=== PATIENT | female | born 1975 | race Caucasian/White ===

== ENCOUNTER 2018-08-09 18:33 | Inpatient (IN) | payer BC, OTHER ==
[2018-08-09] VITALS: BP 106/72
[~2018-08-09] VITALS: Ht 162.6 cm; Wt 65.8 kg
--- NOTE | 2018-08-09 20:30 | NUR ---
INTAKE ASSESSMENT Pt presented in Intake to " stop drinking Alcohol". Pt has been drinking Tequila,taking Oxycodone for pain also takes CBD to" relax and feel good".Pt began drinking Alcohol (Tequila) since she was 12 years old because "it was there at home", socially and occasionally at first but more regularly as years went by.Pt stated "I don't even like the taste of it but I cannot stop drinking".She began taking Oxycodone since the age of 29 and Xtampza since 6 months ago due to chronic low back pain. Pt is A/O x 4,lives at home with her family.She is allergic to Metalaxone and Morphine. She is able to ambulate with a steady gait,speech is clear and coherent.v/s are stable.
[2018-08-09 20:40] LABS: *URINE HCG, QUAL NEGATIVE (NEGATIVE)
[2018-08-09 21:02] LABS: *AMPHETAMINE, URINE NEGATIVE (NEGATIVE); *BARBITURATE, URINE NEGATIVE (NEGATIVE); *CANNABINOID, URINE POSITIVE (NEGATIVE); *COCCAINE, URINE NEGATIVE (NEGATIVE); *OPIATE, URINE NEGATIVE (NEGATIVE); *PHENCYCLIDINE SCREEN,URINE NEGATIVE (NEGATIVE)
[2018-08-09] MEDS ORDERED: IBUPROFEN 600 MG TABLET PO PRN (21:30)
[2018-08-09] MEDS ORDERED: MAG HYDROX/AL HYDROX/SIMETH 30 ML LIQUID UDC PO PRN (21:30)
[2018-08-09] MEDS ORDERED: LOPERAMIDE HCL 2 MG CAPSULE PO PRN ×2 (21:30)
[2018-08-09] MEDS ORDERED: MIRALAX 17 GM POWD.PACK PO PRN (21:30)
[2018-08-09] MEDS ORDERED: THIAMINE HCL 200 MG/2 ML VIAL IM ONE (21:30)
[2018-08-09] MEDS ORDERED: BUPRENORPHINE HCL 2 MG TAB.SUBL SL PRN (21:30)
[2018-08-09] MEDS ORDERED: SRC OPIOID WITHDRAWAL ADMITTING PROTOCOL XX PRN (21:30)
[2018-08-09] MEDS ORDERED: SRC ALCOHOL WITHDRAWAL ADMITTING PROTOCOL XX PRN (21:30)
[2018-08-09] MEDS ORDERED: LORAZEPAM 2 MG/1 ML VIAL IM PRN (21:30)
[2018-08-09] MEDS ORDERED: diphenhydrAMINE 50 MG CAPSULE PO PRN (21:30)
[2018-08-09] MEDS ORDERED: LORAZEPAM 1 MG TABLET PO PRN (21:30)
[2018-08-09] MEDS ORDERED: MAGNESIUM HYDROXIDE 30 ML LIQUID UDC PO PRN (21:30)
--- NOTE | 2018-08-09 21:30 | NUR ---
ADMISSION NOTE-- HT=5 FEET; 4 INCHES. SC=030 POUNDS B/P=133/87,T=97.8; P=105; R=18; O2 SAT= 99% ON ROOM AIR. CIWA=16; C0WS=6. Admitting 43 y/o female to [facility] for medically supervised withdrawals from Alcohol and Opiates.Pt also admits taking CBD " to relax and feel good".Pt began drinking Alcohol (Tequila) since she was 12 years old because "it was there at home", socially and occasionally at first but more regularly as years went by.Pt stated "I don't even like the taste of it but I cannot stop drinking".She began taking Oxycodone since the age of 29 and Xtampza since 6 months ago due to chronic low back pain. SUBSTANCE USE HX-- ALCOHOL - 750 ML OF TEQUILA DAILY FOR 7 DAYS ,LAST DRINK ON 08-09-18 At 1600 OXYCODONE -40 TO 60 MG DAILY ,FOR " A LONG TIME", LAST TAKEN 20 MG ON 08-09-18 AT 0900 XTAMPZA - 54 MG DAILY FOR 6 MONTHS,LAST TAKEN ON 08-09-18 AT 0400. When she is not drinking alcohol, Pt has withdrawal symptoms including anxiety,restlessness,nausea,vomiting,diarrhea and tremors.Pt stated that she began drinking Alcohol because it was easily available at home and her father,brother and sister were also drinking.She wants to stop drinking now because her daughter has moved into her house and she does not want to be drunk around her grandchildren.She has attempted to detox x 2 in the past but soon relapsed due to cravings and poor self control.This time she is more serious because she wants to spend good quality time with her grandchildren.She plans to go for rehab to [facility] after discharge.Pt stated she is here to stop drinking Alcohol but she may go back to using pain medications due to chronic pain issues.Per Pt,her longest period of sobriety from alcohol was for 13 years from 2001 to 2015 and 1 year of sobriety from Oxycodone. PHYSICAL ASSESSMENT Pt is A/O x 4,lives at home with her family in [place].She is allergic to Metalaxone and Morphine. She has HX of Anxiety,Depression, Insomnia, was diagnosed of hypothyroidism in 2018 but is not taking any medication.Hx of Fibromyalgia,Autoimmune Anemia, she has a blood transfusion every 3 months, last one was 6 months ago ," I don't know why". Breast Augmentation in 2007, x 1 in 2001,gastric bypass in 2010, gall bladder removal in 2010, hysterectomy in 2009,low back surgery in 2015,nasal surgery for deviated septum in 2008.Pt has hx Pneumococcal Pneumonia and Cellulitis.Pt stated that she was in a coma for 3 weeks due to sepsis in 2011. During assessment,Pt noted to have surgical multiple scars all over,but skin is intact,warm and dry to touch; abdomen is soft with b/s present in all 4 quadrants; no c/o n/v/d noted. Respirations are even and non labored,no SOB noted. PCP is Dr. Mas in [place], [place].Pt admits having hx of withdrawal induced cardiac complications,delirium,blackouts and falls.Seizure history is unknown. PSYCHIATRIC HX-- Pt has hx of suicide attempt x 1, " few years ago", when she overdosed on alcohol and pills.She was admitted on a voluntary status at [facility],where she stayed for 8 days.She denies having any suicidal thoughts at this time.Denies any SI/HI/AH/VH. TREATMENT HX- [facility] ( MARCH 2018 FROM March TO March) [facility] - IN 2010 FOR 60 DAYS. [facility]- 3 WEEKS AGO FOR 7 DAYS. Pt oriented to room and unit, all safety measures in place with call light within reach, care plan and safety checks initiated, education material provided.Pt placed on fall and seizure precautions.Nasal swab done for MRSA. notified,will continue to monitor for safe withdrawal. Addendum: 08/10/18 at 0712 by CAREY PALMA RN Pt stated that while she was in detox,she was still getting her Oxycodone for pain.Pt stated that she had prescriptions from her Doctor and they continued with the RX.Pt has a Portacath on her left upper chest area,which she stated has been used for blood draw for lab work. However the labor contractor was able to draw blood from her antecubital area without any problem. Addendum: 08/10/18 at 0722 by CAREY PALMA RN Pt"s UDS is positive for Benzos but she denies taking any Benzos.
[2018-08-09] MEDS ORDERED: NITR50CA PO (21:51)
[2018-08-09] MEDS ORDERED: MAGN400C PO (21:51)
[2018-08-09] MEDS ORDERED: METH150T PO (21:51)
[2018-08-09] MEDS ORDERED: PHEN-894 PO (21:51)
[2018-08-09] MEDS ORDERED: QUET200T PO (22:05)
[2018-08-09] MEDS ORDERED: DIPH25CA83 PO (22:05)
[2018-08-09] MEDS ORDERED: HYDR50CA5 PO (22:05)
[2018-08-09] MEDS ORDERED: LIDO30AD10 TD (22:05)
[2018-08-09] MEDS ORDERED: CYCL5TAB PO (22:05)
--- NOTE | 2018-08-09 22:47 | NUR ---
PRN ATIVAN 2 MG PO GIVEN FOR CIWA 16,WILL MONITOR FOR EFFECTIVENESS.
[2018-08-09 23:03] LABS: BASOPHILS % (AUTO) 0.4 % (0.0-2.0); EOSINOPHILS % (AUTO) 0.9 % (0.0-7.0); HEMATOCRIT 41.5 % (31.2-41.9); HEMOGLOBIN 13.9 g/dL (10.9-14.3); LYMPHOCYTES # (AUTO) 1.6 K/uL (20.0-40.0); LYMPHOCYTES % (AUTO) 33.9 % (20.5-51.5); MEAN CORPUSCULAR HEMOGLOBIN 32.4 uug (24.7-32.8); MEAN CORPUSCULAR HGB CONC 33 g/dL (32.3-35.6); MONOCYTES # (AUTO) 0.3 K/uL (2.0-10.0); MONOCYTES % (AUTO) 6.7 % (0.0-11.0); NEUTROPHILS # (AUTO) 2.7 K/uL (1.8-8.9); NEUTROPHILS % (AUTO) 58.1 % (38.5-71.5); PLATELET COUNT (AUTO) 275 K/uL (179-408); RED BLOOD CELL COUNT(AUTO) 4.27 MIL/uL (3.63-4.92); WHITE BLOOD COUNT (AUTO) 4.7 K/uL (3.8-11.8)
[2018-08-09 23:10] LABS: ALANINE AMINOTRANSFERASE 42 U/L (14-59); ALKALINE PHOSPHATASE 161 U/L (50-136); AMYLASE 20 U/L (25-115); ASPARTATE AMINOTRANSFERASE 55 U/L (15-37); BILIRUBIN,TOTAL 0.9 mg/dL (0.2-1.0); CARBON DIOXIDE 25 mmol/L (21-32); CHLORIDE 99 mmol/L (98-107); CREATININE 0.9 mg/dL (0.6-1.3); GLUCOSE 110 mg/dL (74-106); LIPASE 44 U/L (73-393); MAGNESIUM 1.5 mg/dL (1.8-2.4); TOTAL PROTEIN, SERUM 6.7 g/dL (6.4-8.2); UREA NITROGEN, BLOOD 3 mg/dL (7-18)
[2018-08-09 23:16] LABS: ETHANOL < 3 MG/DL (0-0)
[2018-08-09] MEDS ORDERED: QUETIAPINE FUMARATE 200 MG TABLET PO ONE (23:30)
[2018-08-09] MEDS ORDERED: MAGNESIUM OXIDE 400 MG TABLET PO ONE (23:30)
[2018-08-09] MEDS ORDERED: POTASSIUM CHLORIDE 20 MEQ TAB.PRT.SR PO ONE (23:30)
--- NOTE | 2018-08-09 23:47 | NUR ---
PRN ATIVAN REASSESSMENT Pt states feeling better.CIWA = 9.
[2018-08-10] VITALS: BP 106/72
[2018-08-10] MEDS: METHOCARBAMOL 750 MG TABLET PO PRN ×3 (00:06→21:03)
--- NOTE | 2018-08-10 00:06 | NUR ---
SEROQUEL 200 MG PO X1 GIVEN FOR C/O INSOMNIA. PRN ROBAXIN 750 MG PO GIVEN FOR MYALGIA.MAG OX 400 MG PO AND K-DUR 40 MEQ PO GIVEN FOR LOW MAG. AND POTASSIUM LEVELS RESPECTIVELY.
[2018-08-10] MEDS ORDERED: DOXE50CA4 PO (01:05)
[2018-08-10 04:00] VITALS: BP 100/62
[2018-08-10] MEDS: ONDANSETRON ODT 4 MG TAB.RAPDIS SL PRN (06:33)
[2018-08-10] MEDS: LORAZEPAM 1 MG TABLET PO PRN ×2 (06:34→09:29)
--- NOTE | 2018-08-10 06:35 | NUR ---
PRN Zofran 4mg ODT given for c/o nausea, no c/o vomiting noted. PRN Robaxin 750 mg PO given for myalgia.PRN Ativan 1 mg PO given for CIWA 10.Will monitor for effectiveness.
--- NOTE | 2018-08-10 07:33 | NUR ---
END OF SHIFT Pt is a 43 y/o female admitted to [facility] for medically supervised withdrawals from Alcohol and Opiates.Pt also admits taking CBD . Pt is A/O x 4, initial ciwa 16 and cows 6 upon admission.PRN Ativan 2 mg PO given x 1,Ativan 1 mg po given x 1, Robaxin 750 mg Po given x2; Zofran 4 mg given x 1 for nausea with good effect.One time order of Seroquel given for c/o insomnia and was effective. Pt slept 7 hours,fluid intake was 1,000 mls,voided x 1 .Last COWS=6,CIWA=10 this morning at 0630. All safety measures in place, call light is within reach. Will continue to monitor for safety.
[2018-08-10 08:07] VITALS: BP 93/60
--- NOTE | 2018-08-10 08:10 | NUR ---
START OF SHIFT: Received Pt laying in bed A/O X 4. She c/o leg cramps,body aches,sweats,chills restlessness, and agitation. COWS 14 CIWA 11 PRN Ativan 1 mg po given to manage anxiety. Subutex 4 mg SL PRN given for s/s of w/d.Encouraged rest and increased fluids to assist in facilitating detox process. She refused PPD and states she got it a month ago at another facility.Will reassess effectiveness of PRN medications. Will continue to monitor and manage s/s of w/d.
[2018-08-10] MEDS ORDERED: TUBERCULIN,PURIF.PROT.DERIV. 5 TU/0.1 ML TEST ID ONE (09:00)
--- NOTE | 2018-08-10 09:10 | NUR ---
PRN Ativan and Subutex effective. COWS 9 CIWA 9. Will continue to monitor and manage s/s of w/d.
[2018-08-10] MEDS: THIAMINE HCL 100 MG TABLET PO SCH (09:29)
[2018-08-10] MEDS: MULTIVITAMINS,THERAPEUTIC TABLET PO SCH (09:29)
[2018-08-10] MEDS: FOLIC ACID 1 MG TABLET PO SCH (09:29)
[2018-08-10 12:00] VITALS: BP 120/82
--- NOTE | 2018-08-10 12:20 | NUR ---
COWS 15 CIWA 15.She c/o leg cramps,body aches,sweats,chills restlessness, and agitation.
[2018-08-10] MEDS ORDERED: 5 DAY TAPER OF LORAZEPAM -SERENITY PROTOCOL PO PRN (13:00)
[2018-08-10] MEDS ORDERED: 5 DAY TAPER BUPRENORPHINE -SERENITY PROTOCOL SL PRN (13:00)
[2018-08-10] MEDS: LIDOCAINE 5% PATCH TD SCH (13:38)
[2018-08-10] MEDS: BUPRENORPHINE HCL 2 MG TAB.SUBL SL SCH ×3 (13:39→21:04)
[2018-08-10] MEDS: LORAZEPAM 1 MG TABLET PO SCH ×2 (15:01→21:03)
[2018-08-10 16:00] VITALS: BP 108/91
--- NOTE | 2018-08-10 17:00 | NUR ---
Pt is A/O X 4 . She is having periods of confusion with unorganized thoughts. Placed her on 1:1 for safety. Will continue to provide safe and supportive environment.
--- NOTE | 2018-08-10 18:00 | NUR ---
Nursing note/MD communication Pt is having episodes of confusion and difficulty communicating her thoughts. She is asking where her children are. She takes time to answer but is oriented to date, place, and situation. Pt also appears to be tired but is not willing to lie down to rest when encouraged. CIWA 15. PRN Ativan 1mg was pulled to be administered but pt fell asleep. Dr. Pritchard aware. PRN Ativan extended until tomorrow at 0900. On 1:1 for safety.
--- NOTE | 2018-08-10 18:51 | NUR ---
END OF SHIFT: Pt started on Ativan/Subutex taper today. She c/o leg cramps,body aches,anxiety,sweats and irritability. L:ast COWS 10 CIWA 10.She became confused and started talking about her family being here . She is A/O to person place and time but situation is not so clear to her. Placed her on 1:1 for safety. She appears to be tired and fighting sleep. Encouraged her to lay down and rest. She attended groups and it was reported she was falling asleep in group. Will pass shift report to oncoming night nurse.
--- NOTE | 2018-08-10 19:30 | NUR ---
Start of shift note Received report from day shift nurse. Patient is a 43 year old female admitted for ETOH/Opiate withdrawal. Patient is on 5 day Subutex and 5 day Ativan taper. Patient is on 1:1 for having episode of confusion and difficulty communicating her thoughts. Patient was given PRN Ativan and Subutex. Last COWS 10 and CIWA 10. Patient oriented self, date ,time and place but it took a while for her to answer. Patient with episode of confusion . Patient is hyperverbal, rambling and fidgety. Safety measures in place. Will continue to monitor
[2018-08-10 19:59] LABS: MAGNESIUM 1.7 mg/dL (1.8-2.4); POTASSIUM 4.8 mmol/L (3.5-5.1)
[2018-08-10 20:00] VITALS: BP 107/73
--- NOTE | 2018-08-10 20:00 | NUR ---
COWS and CIWA assessment Patient is anxious, fidgety, sweating, bilateral hand tremors, restless legs, nauseated but no emesis, mils sensitivity to light and sounds. and back pain. COWS 13 and CIWA 15.
[2018-08-10] MEDS ORDERED: MAGNESIUM OXIDE 400 MG TABLET PO ONE (21:00)
[2018-08-10] MEDS ORDERED: QUETIAPINE FUMARATE 200 MG TABLET PO SCH (21:00)
--- NOTE | 2018-08-10 21:03 | NUR ---
PRN Robaxin administration Patient c/o back pain and muscle aches. Will monitor for effectiveness
[2018-08-10] MEDS: DOXEPIN 50 MG CAPSULE PO SCH (21:04)
--- NOTE | 2018-08-10 22:03 | NUR ---
PRN Justin re-assessment Patient states medication is helpful . Pain is lessened. Will continue to monitor.
[2018-08-10 22:42] LABS: *BILIRUBIN,URIN NEGATIVE (NEGATIVE); *BLOOD, URINE NEGATIVE (NEGATIVE); *CLARITY,URINE CLEAR (CLEAR); *COLOR,URINE YELLOW (YELLOW); *KETONES,URINE NEGATIVE (NEGATIVE); *PROTEIN,URINE NEGATIVE (NEGATIVE); *UROBILINOGEN,URINE 0.2 E.U./dl (NORMAL); LEUKOCYTE ESTERASE ,URINE 3+ (NEGATIVE); NITRITE, URINE NEGATIVE (NEGATIVE); UGLUCOSE NEGATIVE (NEGATIVE)
[2018-08-10 22:51] LABS: BACTERIA,URINE MODERATE /HPF (NONE SEEN); RBC,URINE 0-3 /HPF (0-3); SQUAMOUS EPITHELIAL CELL,UR MODERATE /HPF (NONE SEEN)
[2018-08-11] VITALS: BP 102/64
--- NOTE | 2018-08-11 | NUR ---
COWS and CIWA deferred Patient lying in bed with eyes closed. Respiration even and unlabored. Will continue to monitor.
--- NOTE | 2018-08-11 | NUR ---
COWS and CIWA deferred Patient lying in bed with eyes closed. Respiration even and unlabored. Will continue to monitor.
[2018-08-11 04:00] VITALS: BP 99/72
--- NOTE | 2018-08-11 04:00 | NUR ---
COWS and CIWA deferred Patient lying in bed with eyes closed. Respiration even and unlabored. Will continue to monitor.
--- NOTE | 2018-08-11 07:14 | NUR ---
End of shift note Monitored patient throughout shift. Patient is on 1:1 for having episode of confusion and difficulty communicating her thoughts during shift. Patient oriented self, date , time and place but it took a while for her to answer. Patient with episode of confusion . Patient is hyperverbal, rambling, restless and fidgety. Scheduled medication given as ordered. Patient was given PRN Robaxin for back and muscle aches. Urine collected and resulted. Dr. Pritchard was notified , still waiting for order. Endorsed to next shift. Safety measures in place. Patient slept 7 hours. Fluid intake 1,1750 ml. Voided x 3. No BM. Last COWS 13 and CIWA 15. .
[2018-08-11 08:00] VITALS: BP 100/68
--- NOTE | 2018-08-11 08:00 | NUR ---
START OF SHIFT AND COWS CIWA ASSESSMENT Pt 43 y/o female admitted for etoh/ opiate withdrawal. Pt received in room awake watching television. Pt with sitter 1: 1 to monitor for safety. Pt alert and oriented to name and place. Skin warm and moist to touch. Respirations even and unlabored. Pt appears disheveled and unkempt. Hair uncombed. Clothes and empty drink bottles scattered throughout the room. Encouraged to maintain hygiene. Cows=16ciwa=14 @ 0800. Anxious and restless. Bilateral hand tremors noted. Pressured speech noted. Complaints of generalized body aches and discomfort. Irritable. It was reported that pt slept for 7 hours last night. Pt is on a 5 day subutex taper and is on day 2. Pt also on a 5 day ativan taper and is on day 2. Bed on lowest position with side rails x2 up for safety. Call light within reach.
[2018-08-11 08:06] LABS: HEPATITIS B SURFACE AG Negative (Negative)
[2018-08-11] MEDS: BUPRENORPHINE HCL 2 MG TAB.SUBL SL SCH ×3 (08:21→20:55)
[2018-08-11] MEDS: METHOCARBAMOL 750 MG TABLET PO PRN ×2 (08:22→20:53)
[2018-08-11] MEDS: MULTIVITAMINS,THERAPEUTIC TABLET PO SCH (08:22)
[2018-08-11] MEDS: THIAMINE HCL 100 MG TABLET PO SCH (08:22)
[2018-08-11] MEDS: FOLIC ACID 1 MG TABLET PO SCH (08:22)
[2018-08-11] MEDS: LORAZEPAM 1 MG TABLET PO SCH ×4 (08:22→20:53)
[2018-08-11] MEDS: LIDOCAINE 5% PATCH TD SCH (08:22)
--- NOTE | 2018-08-11 08:27 | NUR ---
PRN ROBAXIN Pt with c/o lower back aches 03/17. Robaxin po prn per MD order given.
--- NOTE | 2018-08-11 09:27 | NUR ---
PRN SP ORTIZ Pt states lower back ache 12/16.
[2018-08-11 12:00] VITALS: BP 106/78
--- NOTE | 2018-08-11 12:00 | NUR ---
COWS CIWA ASSESSMENT cows=14 ciwa=14. Bilateral hand tremors noted. Anxious and restless. Pressured speech. Irritable. Pacing. Intermittent perspiration and chills. Complaints of generalized body aches. Complaints of generalized discomfort.
[2018-08-11] MEDS: HYDROXYZINE PAMOATE 25 MG CAPSULE PO PRN (14:19)
--- NOTE | 2018-08-11 14:23 | NUR ---
PRN VISTARIL Pt states very anxious. Pacing. Fidgety. Vistaril po prn per MD order given.
--- NOTE | 2018-08-11 14:24 | NUR ---
NSG ENTRY Per METHODS STUDY ANALYST, pt observed walking around the room and looking for her son.
--- NOTE | 2018-08-11 15:23 | NUR ---
PRN VISTARIL EVAL Pt observed in room folding clothes.
--- NOTE | 2018-08-11 15:31 | NUR ---
NSG ENTRY pt states she sees her son in the room. Pt states she believes her son is in the room. Pt is rambling. Observed pointing at different objects around the room. Pt not able to clearly state her needs. made aware with no new orders noted.
[2018-08-11 16:00] VITALS: BP 115/81
--- NOTE | 2018-08-11 16:00 | NUR ---
COWS CIWA ASSESSMENT cows=14 ciwa=15. Anxious and restless. Bilateral hand tremors noted. Pressured speech. Rambling. States sees and hears son in room. Pacing. Irritable. Intermittent perspirations. Complaints of body aches.
--- NOTE | 2018-08-11 16:06 | NUR ---
Therapist prompted client to attend group therapy.
[2018-08-11 16:35] LABS: CREATININE 0.9 mg/dL (0.6-1.3); MAGNESIUM 1.7 mg/dL (1.8-2.4); POTASSIUM 3.8 mmol/L (3.5-5.1); TOTAL PROTEIN, SERUM 6.4 g/dL (6.4-8.2)
--- NOTE | 2018-08-11 17:15 | NUR ---
MD COMMUNICATION LABS: Mg=1.7. aware.
--- NOTE | 2018-08-11 18:57 | NUR ---
END OF SHIFT Pt 43 y/o female admitted for etoh/ opiate withdrawal. Pt alert and oriented to name and place. Skin warm and moist to touch. Respirations even and unlabored. Pt appears disheveled and unkempt. Food wrappings, clothes, and empty drink bottles scattered throughout the room. Encouraged to maintain hygiene. Pt is on a 1:1 sitter for safety. Cows=14 ciwa=15@1600. Periods of confusion. Anxious and restless. Pressured speech and rambling. Hyperverbal. Bilateral hand tremors noted. Pacing. Complaints of body aches. Pt isolative with minimal peer interaction. Pt was seen by MD today. Pt is on a 5 day Subutex taper and is on 2. Pt is also on a 5 day ativan taper and is on day 2. Bed on lowest position with side rails x2 up for safety. Call light within reach.
--- NOTE | 2018-08-11 19:30 | NUR ---
Start of shift note Received report from day shift nurse. Patient is a 43 year old female admitted for ETOH and Opiate withdrawal. Patient is on 2nd of her 5 day Ativan and 5 day Subutex taper. Patient continue on 1:1 for episode of confusion and difficulty communicating her thoughts. Patient Seroquel was discontinued and she has new order of Doxepin. Patient was given PRN Robaxin. Last COWS 14 and CIWA 17. Patient alert oriented to self and place . Patient with periods of confusion and noted rambling. Denies visual and auditory hallucinations. Safety measures in place. Will continue to monitor.
[2018-08-11 20:00] VITALS: BP 112/82
--- NOTE | 2018-08-11 20:00 | NUR ---
COWS and CIWA assessment Patient present with anxiety, restlessness, pacing, hyperverbal, rambling, c/o abdominal cramping, intermittent perspiration. COWS 13 and CIWA 14.
--- NOTE | 2018-08-11 20:53 | NUR ---
PRN Robaxin administration Patient c/o muscles aches and restless legs. Will monitor for effectiveness
[2018-08-11] MEDS: DOXEPIN 50 MG CAPSULE PO SCH (20:55)
[2018-08-11] MEDS: ONDANSETRON ODT 4 MG TAB.RAPDIS SL PRN (21:10)
--- NOTE | 2018-08-11 21:10 | NUR ---
PRN Zofran SL administration Patient c/o nausea but no emesis. Will monitor for effectiveness
[2018-08-11] MEDS ORDERED: MAGNESIUM OXIDE 400 MG TABLET PO ONE (21:30)
[2018-08-11] MEDS: KETOROLAC TROMETHAMINE 30 MG INJ IM PRN (22:13)
--- NOTE | 2018-08-11 22:13 | NUR ---
PRN Toradol IM administration Patient c/o generalized body aches. Will monitor for effectiveness
[2018-08-12] VITALS: BP 104/68
--- NOTE | 2018-08-12 | NUR ---
COWS and CIWA deferred Patient lying in bed with eyes closed. Respiration even and unlabored. Will continue to monitor
[2018-08-12 04:00] VITALS: BP 100/70
--- NOTE | 2018-08-12 07:20 | NUR ---
Start of Shift Note Pt. is a 43 y/o female admitted for the medically managed withdrawal from ETOH and Opiates. Pt. was placed on a 5 day Subutex taper and a 5 day Ativan taper to manage withdrawal. Pt. was placed on 1:1 sitter for safety after pt. presented with confusion. Endorse from previous shit pt. presented with anxiety, restlessness and difficulty concentrating. Received pt. in room. Pt. sitting at the edge of the bed. Pt. presents with pressured speech, anxiety, difficulty concentrating and reports nausea. Educate pt. on medication regiment and treatment plan. Safety measures in place. Will continue monitor pt.'s behavior for safety and medications effectiveness.
--- NOTE | 2018-08-12 07:22 | NUR ---
End of shift note Patient continue on 1:1 for episode of confusion and difficulty communicating her thoughts. Patient with episode of confusion during shift. Patient Seroquel was discontinued and she has new order of Doxepin. Scheduled taper and medication given as ordered. Patient was given PRN Robaxin and Toradol IM. Denies visual and auditory hallucinations. Safety measures in place. Will continue to monitor. Patient slept 6 hours. Fluid intake 2,200 ml. Voided x .4 No BM. Last COWS 7 and CIWA 8 .
[2018-08-12 07:52] LABS: BASOPHILS % (AUTO) 0.3 % (0.0-2.0); EOSINOPHILS # (AUTO) 0.1 K/uL (0.0-0.7); EOSINOPHILS % (AUTO) 1.3 % (0.0-7.0); HEMATOCRIT 36.1 % (31.2-41.9); HEMOGLOBIN 12.2 g/dL (10.9-14.3); LYMPHOCYTES # (AUTO) 1.1 K/uL (20.0-40.0); LYMPHOCYTES % (AUTO) 21.8 % (20.5-51.5); MEAN CORPUSCULAR HEMOGLOBIN 33.1 uug (24.7-32.8); MEAN CORPUSCULAR HGB CONC 34 g/dL (32.3-35.6); MEAN CORPUSCULAR VOLUME 97.9 fL (75.5-95.3); MONOCYTES # (AUTO) 0.4 K/uL (2.0-10.0); MONOCYTES % (AUTO) 7.9 % (0.0-11.0); NEUTROPHILS # (AUTO) 3.4 K/uL (1.8-8.9); NEUTROPHILS % (AUTO) 68.7 % (38.5-71.5); PLATELET COUNT (AUTO) 193 K/uL (179-408); RED BLOOD CELL COUNT(AUTO) 3.69 MIL/uL (3.63-4.92)
[2018-08-12 08:00] VITALS: BP 101/71
--- NOTE | 2018-08-12 08:00 | NUR ---
COWS/CIWA Assessment COWS of 13/CIWA of 12. Pt. in room presenting with anxiety, restlessness, diaphoresis, body aches, tremors and nausea. Will give medications as ordered. Will continue to monitor pt.'s behavior for safety.
[2018-08-12 08:03] LABS: CREATININE 0.7 mg/dL (0.6-1.3); POTASSIUM 3.9 mmol/L (3.5-5.1)
[2018-08-12] MEDS: METHOCARBAMOL 750 MG TABLET PO PRN ×2 (08:12→20:11)
[2018-08-12] MEDS: MULTIVITAMINS,THERAPEUTIC TABLET PO SCH (08:12)
[2018-08-12] MEDS: LORAZEPAM 1 MG TABLET PO SCH ×3 (08:12→20:08)
[2018-08-12] MEDS: ACETAMINOPHEN 325 MG TABLET PO PRN (08:12)
[2018-08-12] MEDS: FOLIC ACID 1 MG TABLET PO SCH (08:13)
[2018-08-12] MEDS: THIAMINE HCL 100 MG TABLET PO SCH (08:13)
[2018-08-12] MEDS: LIDOCAINE 5% PATCH TD SCH (08:14)
[2018-08-12] MEDS: ONDANSETRON ODT 4 MG TAB.RAPDIS SL PRN (08:18)
--- NOTE | 2018-08-12 08:18 | NUR ---
PRN Medication Pt. in room complaining of body aches, headache, and nausea. PRN Zofran, Robaxin, and Tylenol given at this time to manage withdrawal symptoms. Will continue to monitor pt.'s behavior for safe and medication effectiveness.
[2018-08-12] MEDS ORDERED: BUPRENORPHINE HCL 2 MG TAB.SUBL SL SCH (09:00)
--- NOTE | 2018-08-12 09:00 | NUR ---
PRN Re-Assessment Pt. in room and reports a reduction in symptoms. Medication effective. Will continue to monitor pt.'s behavior for safety.
--- NOTE | 2018-08-12 10:16 | NUR ---
Therapist prompted client to attend group therapy sessions.
[2018-08-12 12:00] VITALS: BP 109/78
--- NOTE | 2018-08-12 12:00 | NUR ---
COWS/CIWA Assessment COWS of 12/CIWA of 14. Pt. in room presenting with anxiety, restlessness, diaphoresis, body aches, tremors and intermittent delusions thinking. MD and Psychiatrist both aware. Pt. compliant with medication regiment and treatment plan. Will continue to monitor pt.'s behavior for safety and medication effective.
[2018-08-12] MEDS: BUPRENORPHINE HCL 2 MG TAB.SUBL SL SCH ×2 (14:18→20:09)
[2018-08-12 16:00] VITALS: BP 109/77
--- NOTE | 2018-08-12 19:11 | NUR ---
End of Shift Note Pt. is a 43 y/o female admitted for the medically managed withdrawal from ETOH and Opiates. Pt. was placed on a 5 day Subutex taper and a 5 day Ativan taper to manage withdrawal. Pt. was placed on 1:1 sitter for safety after pt. presented with confusion and delusions. Throughout shift pt. presented with anxiety, restlessness, delusional thinking, body aches, pressured speech and difficulty concentrating. Pt. remained compliant with medication regiment and treatment plan. Safety measures in place. Will endorse pt.s care to oncoming shift
--- NOTE | 2018-08-12 19:30 | NUR ---
START OF SHIFT Received patient lying in bed with eyes closed and even, unlabored respirations with bilateral side rails raised with a tech present. Patient is a 43 year old female admitted for medically supervised withdrawal from ETOH and opiates with secondary diagnoses of anxiety, depression, insomnia, fibromyalgia, and autoimmune anemia. Per endorsement, patient was noted with delusional thoughts, pressured speech, flight of ideas, restlessness, confusion, anxiety, and difficulty concentrating. Upon assessment, patient was seen lying in bed with even and unlabored respirations. Last COWS was 12 and last CIWA was 14. Will continue to monitor.
--- NOTE | 2018-08-12 20:00 | NUR ---
COWS = 11, CIWA = 17 Patient noted with anxiety, disorientation, restlessness, headache, irritability, and diffuse muscle aches. Patient is disoriented to date and day of the week. Will continue to monitor.
[2018-08-12] MEDS: DOXEPIN 50 MG CAPSULE PO SCH (20:10)
[2018-08-12] MEDS: HYDROXYZINE PAMOATE 25 MG CAPSULE PO PRN (20:11)
--- NOTE | 2018-08-12 20:12 | NUR ---
PRN MEDICATION ADMINISTRATION Patient reported symptoms of anxiety, muscle pain, restlessness, and itchiness. PRN medications Toradol, Robaxin, and Vistaril administered. Will reassess for effectiveness.
[2018-08-12] MEDS: KETOROLAC TROMETHAMINE 30 MG INJ IM PRN (20:13)
--- NOTE | 2018-08-12 20:42 | NUR ---
PRN MEDICATION REASSESSMENT Patient stated mild improvement in pain levels at back and bilateral upper legs. No further requests for pain meds made. PRN Toradol noted to be effective. Will continue to monitor.
[2018-08-12 20:44] VITALS: BP 109/78
--- NOTE | 2018-08-12 21:12 | NUR ---
PRN MEDICATION REASSESSMENT Patient stated relief from anxiety, restlessness, muscle pain, and itchiness. PRN Vistaril and Robaxin noted to be effective. Will continue to monitor.
[2018-08-13] VITALS: BP 115/79
--- NOTE | 2018-08-13 | NUR ---
COWS = 12, CIWA = 19 Patient noted with anxiety, restlessness, irritability, agitation, pain, and disorientation. Patient has difficulty understanding that her family members are currently not with her now, but continues to respond correctly to questions as to where she is. PRN medications requested and will be administered. Will continue to monitor.
[2018-08-13] MEDS: CLONIDINE HCL 0.1 MG TABLET PO PRN ×2 (00:21→13:06)
[2018-08-13] MEDS: TRAZODONE 50 MG TABLET PO PRN (00:21)
[2018-08-13] MEDS: ACETAMINOPHEN 325 MG TABLET PO PRN ×2 (00:21→08:48)
--- NOTE | 2018-08-13 00:21 | NUR ---
PRN MEDICATION ADMINISTRATION Patient stated having symptoms of anxiety, inability to sleep, and pain in her back at a level of 8/10 in her legs. PRN medications Clonidine, Trazodone, and Tylenol administered as per MD orders and patient request. Will reassess effectiveness.
--- NOTE | 2018-08-13 01:21 | NUR ---
PRN MEDICATION REASSESSMENT Patient noted lying in bed with eyes closed and even, unlabored respirations. No s/s of pain or distress noted. HOB and bilateral side rails raised. PRN medications Clonidine, Trazodone, and Tylenol noted to be effective. Will continue to monitor.
[2018-08-13] MEDS: KETOROLAC TROMETHAMINE 30 MG INJ IM PRN ×3 (02:46→20:48)
--- NOTE | 2018-08-13 02:46 | NUR ---
PRN MEDICATION ADMINISTRATION Patient reported a pain in her back and legs at a level of 7 out of 10 unresolved by distraction or ambulation and which is preventing her from staying asleep. PRN Toradol administered per MD orders and patient request. Will reassess for effectiveness.
--- NOTE | 2018-08-13 03:46 | NUR ---
PRN MEDICATION REASSESSMENT Patient reports moderate relief from leg and back pain. PRN medication Toradol noted with mild effectiveness. Will continue to monitor.
[2018-08-13 04:00] VITALS: BP 90/59
--- NOTE | 2018-08-13 04:00 | NUR ---
COWS = 11, CIWA = 18 Patient continues to present with anxiety, headache, disorientation, itchiness, anxiety, restlessness, and tremors. Comfort and safety measures maintained. Will continue to monitor.
--- NOTE | 2018-08-13 07:20 | NUR ---
Start of Shift Note Pt. is a 43 y/o female admitted for the medically managed withdrawal from ETOH and Opiates. Pt. was placed on a 5 day Subutex taper and a 5 day Ativan taper to manage withdrawal. Pt. was placed on 1:1 sitter for safety after pt. presented with confusion and delusional thinking. Endorse from previous shit pt. presented with anxiety, restlessness, difficulty concentrating and some confusion. Received pt. in room. Pt. laying in bed with eyes open. Pt. presents with pressured speech, anxiety, and difficulty concentrating. Educate pt. on medication regiment and treatment plan. Safety measures in place. Will continue monitor pt.'s behavior for safety and medications effectiveness.
--- NOTE | 2018-08-13 07:35 | NUR ---
END OF SHIFT Patient is noted awake, alert, and oriented x4 lying in bed with HOB and bilateral side rails raised. Patient is a 43 year old female admitted for medically supervised withdrawal from ETOH and opiates with secondary diagnoses of anxiety, depression, insomnia, fibromyalgia, and autoimmune anemia. During the shift, patient reported s/s of muscle pain, muscle spasm, diffuse discomfort, anxiety, nausea, moderate to severe pain, and inability to sleep. PRN medications Toradol x2, Robaxin, Vistaril, Clonidine, Trazodone, and Tylenol were administered with limited effectiveness. Patient reported numerous complaints and negative symptoms last night including the desire to call her family. She was reminded numerous times of the policies of the facility, but continued to ask likely due to her disorientation. Last COWS is 11 and last CIWA is 18. Patient slept for about 1 hour last night. Endorsed to AM nurse.
[2018-08-13 08:00] VITALS: BP 97/68
--- NOTE | 2018-08-13 08:00 | NUR ---
COWS/CIWA Assessment COWS of 8/CIWA of 11. Pt. in room presenting with anxiety, restlessness, agitation back pain, and tremors. Will give medication regiment as ordered. Will continue to monitor pt.'s behavior for safety.
[2018-08-13] MEDS: FOLIC ACID 1 MG TABLET PO SCH (08:48)
[2018-08-13] MEDS: THIAMINE HCL 100 MG TABLET PO SCH (08:48)
[2018-08-13] MEDS: HYDROXYZINE PAMOATE 25 MG CAPSULE PO PRN (08:49)
[2018-08-13] MEDS: LORAZEPAM 1 MG TABLET PO SCH ×2 (08:49→20:49)
[2018-08-13] MEDS: MULTIVITAMINS,THERAPEUTIC TABLET PO SCH (08:49)
[2018-08-13] MEDS: METHOCARBAMOL 750 MG TABLET PO PRN ×2 (08:49→20:47)
[2018-08-13] MEDS: LIDOCAINE 5% PATCH TD SCH (08:49)
--- NOTE | 2018-08-13 08:49 | NUR ---
PRN Assessment Pt. in room reporting increased levels of anxiety, and body aches. PRN Robaxin, and Vistaril given at this time to manage withdrawal symptoms. Will continue to monitor pt.'s behavior for safety.
[2018-08-13] MEDS: BUPRENORPHINE HCL 2 MG TAB.SUBL SL SCH ×3 (08:50→20:49)
--- NOTE | 2018-08-13 09:30 | NUR ---
PRN Re-Assessment Pt. in room and reports a reduction in symptoms. Will continue to monitor pt.'s behavior for safety.
[2018-08-13 12:00] VITALS: BP 105/67
--- NOTE | 2018-08-13 12:00 | NUR ---
COWS/CIWA Assessment COWS of /CIWA of 10. Pt. in room presenting with anxiety, restlessness, agitation back pain, and tremors. Pt. compliant with treatment plan and medication regiment. Will continue to monitor pt.'s behavior for safety.
--- NOTE | 2018-08-13 12:22 | NUR ---
Therapist prompted client to attend group therapy sessions.
[2018-08-13] MEDS: ONDANSETRON ODT 4 MG TAB.RAPDIS SL PRN (13:05)
--- NOTE | 2018-08-13 13:07 | NUR ---
PRN Medication Pt. in room and reports generalize body aches and back pain, along with anxiety and nausea. PRN Toradol, Clonidine and Zofran given at this time to manage withdrawal symptoms. Will continue to monitor pt.'s behavior for safety.
--- NOTE | 2018-08-13 14:00 | NUR ---
PRN Re-Assessment Pt. in room and reports a reduction in symptoms. Medication effective. Will continue to monitor pt.'s behavior for safety.
[2018-08-13] MEDS: AMOXICILLIN TRIHYDRATE 500 MG CAPSULE PO SCH ×2 (14:13→21:59)
[2018-08-13 16:00] VITALS: BP 98/67
--- NOTE | 2018-08-13 19:10 | NUR ---
End of Shift Note Pt. is a 43 y/o female admitted for the medically managed withdrawal from ETOH and Opiates. Pt. was placed on a 5 day Subutex taper and a 5 day Ativan taper to manage withdrawal. Pt. was placed on 1:1 sitter for safety after pt. presented with confusion and delusional thinking. Throughout shift pt. presented with anxiety, restlessness, difficulty concentrating and some confusion. Pt. compliant with treatment plan and medication regiment. Safety measures in place. Will endorse pt.s care to oncoming shift.
--- NOTE | 2018-08-13 19:30 | NUR ---
START OF SHIFT Received patient awake, alert, and oriented x4 lying in bed with HOB and bilateral side rails up watching television. Patient is a 43 year old female admitted for medically supervised withdrawal from ETOH and opiates with secondary diagnoses of anxiety, depression, insomnia, fibromyalgia, and autoimmune anemia. Patient was placed on a 5 day Ativan taper and is placed on a 1:1 for disorientation, confusion, and delusional thinking. During the shift, patient reported symptoms of anxiety, muscle pain, generalized body aches, back pain, and nausea. PRN meds Toradol, Vistaril, Robaxin, Zofran, and Clonidine were administered. Last COWS is 8 and last CIWA 10. Upon assessment patient was seen with a tech in her room watching television and reported pain in her back and legs at a level of 7/10 and requested pain meds with regular scheduled meds. Will continue to monitor.
--- NOTE | 2018-08-13 20:00 | NUR ---
COWS = 9, CIWA = 10 Patient noted with chills, restlessness, severe diffuse body aches, stomach pains, irritability, mild lightheadedness, and tremors. Patient requests pain medication at this time. Will administer med and continue to monitor.
[2018-08-13 20:11] VITALS: BP 93/55
--- NOTE | 2018-08-13 20:48 | NUR ---
PRN MEDICATION ADMINISTRATION Patient reported pain in her back which is chronic and sharp and muscle pain in her legs. PRN med Toradol and Robaxin administered per MD orders and patient's request. Will reassess for effectiveness.
[2018-08-13] MEDS: DOXEPIN 50 MG CAPSULE PO SCH (20:49)
--- NOTE | 2018-08-13 21:48 | NUR ---
PRN MEDICATION REASSESSMENT Patient reports improvement in pain levels and muscle spasms. Patient states her current pain levels to be 3/10 which she describes to be a manageable level. HOB and bilateral side rails raised for safety. Call light is within reach. Will continue to monitor.
--- NOTE | 2018-08-14 | NUR ---
VITALS AND COWS/CIWA DEFERRED Patient noted to be lying in bed with eyes closed and even, unlabored respirations. HOB and bilateral side rails raised for safety. Vitals signs refused and COWS/CIWA assessment deferred. Fall and safety precautions maintained. Call light within reach and 1 to 1 tech present by bedside. Will continue to monitor.
[2018-08-14] MEDS: AMOXICILLIN TRIHYDRATE 500 MG CAPSULE PO SCH ×3 (05:12→22:21)
[2018-08-14] MEDS: METHOCARBAMOL 750 MG TABLET PO PRN ×2 (05:28→22:30)
[2018-08-14] MEDS: HYDROXYZINE PAMOATE 25 MG CAPSULE PO PRN (05:28)
--- NOTE | 2018-08-14 05:28 | NUR ---
PRN MEDICATION ADMINISTRATION Patient reported "I just woke up and I'm feeling anxious and I feel pain in my back and legs. Can you give me something?" PRN meds Robaxin and Vistaril administered. Will reassess for effectiveness and continue to monitor.
--- NOTE | 2018-08-14 06:28 | NUR ---
PRN MEDICATION REASSESSMENT Patient reported improvement in feelings of anxiety and decreased pain in her back and legs. PRN meds Robaxin and Vistaril noted to be effective. Will continue to monitor.
--- NOTE | 2018-08-14 07:15 | NUR ---
END OF SHIFT Patient is noted in her room lying in bed awake, alert, and oriented x3 watching television with HOB and bilateral side rails raised and tech present. Patient is a 43 year old female admitted for medically supervised withdrawal from ETOH and opiates with secondary diagnoses of anxiety, depression, insomnia, fibromyalgia, and autoimmune anemia. Patient is on a 5 day subutex and 5 day Ativan taper. During the shift, patient reported experiencing symptoms of anxiety, chills, pain, muscle spasms, and flu-like symptoms. PRN medications Toradol, Robaxin, and Vistaril were administered per MD orders for symptomatic relief and were noted to be effective. Patient's level of orientation is higher than the previous shift, but still shows signs of disorientation, anxiety, and confusion. Last COWS is 9 and last CIWA is 10. Patient slept for about 6 hours last night. Endorsed to oncoming AM nurse.
--- NOTE | 2018-08-14 07:30 | NUR ---
Start of Shift Director Of Corporate Sales received report on 43 year old female admitted on 08/09/18 for medical management of ETOH and Opiate withdrawals. Pt endorses allergies to Morphine and Metolazone, full code and regular diet. Pt endorses a PMH to include Fibromyalgia, Autoimmune Anemia and various surgeries. Endorses PPH of anxiety, depression and insomnia. Pt is currently on a 5 day Subutex and 5 day Ativan taper. With last CIWA 10 and COWS 9, per NOC report. Pt was administered PRN Toradol(pain), Robaxin(muscle spasms) x2 and Vistaril(anxiety), per NOC report. Director Of Corporate Sales encounters pt in pts room with pt resting with eyes closed, even and unlabored respirations noted. Staff at bedside as 1:1 staffing for safety. Bed in low position with wheels locked and side rails up x2. Will continue to monitor, support and encourage according to plan of care.
[2018-08-14 08:00] VITALS: BP 82/54
--- NOTE | 2018-08-14 08:00 | NUR ---
CIWA 11/COWS 8 Pt is tremulous, diaphoretic, anxious and restless with complaints chills and nausea and myalgia. Will continue to monitor, support and encourage according to plan of care.
[2018-08-14] MEDS ORDERED: LORAZEPAM 1 MG TABLET PO SCH (09:00)
[2018-08-14] MEDS ORDERED: BUPRENORPHINE HCL 2 MG TAB.SUBL SL SCH (09:00)
[2018-08-14] MEDS: LIDOCAINE 5% PATCH TD SCH (09:20)
[2018-08-14] MEDS: FOLIC ACID 1 MG TABLET PO SCH (09:21)
[2018-08-14] MEDS: THIAMINE HCL 100 MG TABLET PO SCH (09:21)
[2018-08-14] MEDS: MULTIVITAMINS,THERAPEUTIC TABLET PO SCH (09:21)
[2018-08-14 12:00] VITALS: BP 94/65
--- NOTE | 2018-08-14 12:00 | NUR ---
CIWA 9/COWS 9 Pt with complaints of myalgia and chills. Pt is tremulous, anxious and restless. Will continue to monitor, support and encourage according to plan of care.
[2018-08-14 16:30] VITALS: BP 106/71
--- NOTE | 2018-08-14 16:30 | NUR ---
CIWA 8/COWS 7 Pt with tremors, moist skin, anxiety and restlessness. Pt with myalgia and nausea. Will continue to monitor, support and encourage according to plan of care.
[2018-08-14] MEDS: BUPRENORPHINE HCL 2 MG TAB.SUBL SL SCH (17:27)
--- NOTE | 2018-08-14 19:26 | NUR ---
End of Shift Geologist provided report on 43 year old female admitted on 08/09/18 for medical management of ETOH and Opiate withdrawals. Pt endorses allergies to Morphine and Metolazone, full code and regular diet. Pt endorses a PMH to include Fibromyalgia, Autoimmune Anemia and various surgeries. Endorses PPH of anxiety, depression and insomnia. Pt is currently on a 5 day Subutex and 5 day Ativan taper. With last CIWA 8 and COWS 7, recorded at 1630. NO PRN medications administered this shift. Pt is A/O x4 and makes her needs known. Pt with a clear thought process and clear speech pattern. Pt is calm and cooperative. Anxious and restless, tremulous and diaphoretic. Pt removed from 1:1 staff, due to being completely oriented with no episodes of confusion. Pt has a normal affect with a depressed mood. Bed in low position with wheels locked and side rails up x2.
--- NOTE | 2018-08-14 19:43 | NUR ---
START OF SHIFT NOTE Rcvd report from outgoing nurse. Pt is a 43 y/o female A/O to person, place, time, and purpose. Pt was admitted for medically supervised withdrawal from ETOH and Opiates. Pt is on day 5 of a 5 day Subutex and Ativan taper. Pt has been presenting w/ anxiety, restlessness, flat affect, depressed mood, body aches, sweats, chills, and restless legs. Pt rcvd no PRN medications during previous shift. Last CIWA 8 and COWS 7 @ 1600. Call light is within reach. Pt will continue to be monitored and needs met.
--- NOTE | 2018-08-14 20:05 | NUR ---
CIWA AND COWS ASSESSMENT CIWA 9 and COWS 8. . Pt has been presenting w/ anxiety, restlessness, flat affect, depressed mood, body aches, sweats, chills, and restless legs. V/S: T:98.1, P:89, RR:14, SPO2:98, BP:102/69.
[2018-08-14 20:06] VITALS: BP 102/69
[2018-08-14] MEDS: TRAZODONE 50 MG TABLET PO PRN (22:21)
[2018-08-14] MEDS: DOXEPIN 50 MG CAPSULE PO SCH (22:21)
--- NOTE | 2018-08-14 22:21 | NUR ---
PRN TRAZODONE ADMINISTRATION Trazodone 50mg given for sleep. Will reassess pt in 1 hr.
[2018-08-14] MEDS: KETOROLAC TROMETHAMINE 30 MG INJ IM PRN (22:30)
--- NOTE | 2018-08-14 22:30 | NUR ---
PRN TORADOL AND ROBAXIN ADMINISTRATION Toradol 30mg IM for 8/10 lower back pain and Robaxin 750mg for generalized muscle pain given. Will reassess pt in 1 hr.
--- NOTE | 2018-08-14 23:21 | NUR ---
PRN TRAZODONE REASSESSMENT Pt is in bed w/ her eyes clsoed. Pt's respirations are unlabored and even.
--- NOTE | 2018-08-14 23:30 | NUR ---
PRN TORADOL AND ROBAXIN REASSESSMENT Pt is in bed w/ her eyes closed. Pt's respirations are unlabored and even.
--- NOTE | 2018-08-15 00:04 | NUR ---
CIWA AND COWS DEFERRED Pt is in bed w/ her eyes closed. Pt's respirations are unlabored and even.
[2018-08-15] MEDS: CLONIDINE HCL 0.1 MG TABLET PO PRN ×2 (01:12→21:01)
[2018-08-15] MEDS: ACETAMINOPHEN 325 MG TABLET PO PRN (01:12)
[2018-08-15] MEDS: HYDROXYZINE PAMOATE 25 MG CAPSULE PO PRN ×2 (01:12→21:01)
--- NOTE | 2018-08-15 01:12 | NUR ---
PRN CLONIDINE. VISTARIL, AND TYLENOL ADMINISTRATION Clonidine 0.1mg and Vistaril 50mg for anxiety and Tylenol 650mg for pain were given. Pt c/o insomnia and "tossing and turning". Will reassess pt in 1 hr.
[2018-08-15] MEDS: KETOROLAC TROMETHAMINE 30 MG INJ IM PRN (06:38)
[2018-08-15] MEDS: AMOXICILLIN TRIHYDRATE 500 MG CAPSULE PO SCH ×3 (06:38→21:01)
--- NOTE | 2018-08-15 06:38 | NUR ---
PRN TORADOL ADMINISTRATION Toradol 30mg IM given for 8/10 lower back pain. Will reassess pt in 1 hr.
--- NOTE | 2018-08-15 07:15 | NUR ---
END OF SHIFT NOTE Endorsed pt to oncoming nurse. Pt is a 43 y/o female A/O to person, place, time, and purpose. Pt was admitted for medically supervised withdrawal from ETOH and Opiates. Pt completed day 4 of a 5 day Subutex and Ativan taper. Pt continued presenting w/ anxiety, restlessness, flat affect, depressed mood, body aches, sweats, chills, and restless legs. Pt denied any S/I or H/I. PRN Toradol, Trazodone, Tylenol, Robaxin, Clonidine, and Vistaril were given and noted effective. Pts fluid intake was 3000ml and she slept for 5 hrs. Last CIWA 9 and COWS 8 @ 0100. Call light is within reach.
--- NOTE | 2018-08-15 07:38 | NUR ---
Start of Shift Notes/COWS/CIWA Assessment/PRN Toradol re-assessment: Received endorsement from night nurse. Patient is a 43 year old female admitted for ETOH and opiate withdrawal who was placed on a 5-day Valium and 5-day Subutex taper as ordered. No adverse reactions noted. Per night report, patient was given PRN Toradol x 2, and patient states that it was effective at this time and rates her pain a 2 out of 10, PRN Clonidine, Robaxin, Vistaril, and Tylenol were also given during the night. Last COWS 8/CIWA 9. Slept for a total of 5 hours. Received patient in her room. She appears disheveled. Oriented x 4. Denies S/I or H/I noted. No AV hallucinations noted. She complains of anxiety, agitation, intermittent perspiration, generalized myalgia, chills and hot flashes. She appears anxious and agitated. COWS 10/CIWA 12 at this time. Educated patient on her current plan of care for the day and her medication regimen. Encouraged oral fluid intake and encouraged group participation to learn new skills to prevent relapse. All needs met and attended. Will continue to monitor.
[2018-08-15 08:00] VITALS: BP 90/56
[2018-08-15] MEDS: LIDOCAINE 5% PATCH TD SCH (09:11)
[2018-08-15] MEDS: BUPRENORPHINE HCL 2 MG TAB.SUBL SL SCH ×2 (09:11→21:02)
[2018-08-15] MEDS: THIAMINE HCL 100 MG TABLET PO SCH (09:11)
[2018-08-15] MEDS: MULTIVITAMINS,THERAPEUTIC TABLET PO SCH (09:11)
[2018-08-15] MEDS: FOLIC ACID 1 MG TABLET PO SCH (09:19)
[2018-08-15 12:00] VITALS: BP 95/65
--- NOTE | 2018-08-15 12:36 | NUR ---
COWS/CIWA Assessment: COWS 8, CIWA 10, patient continues to present with gross tremors, anxiety, agitation, facial flushing, chills, hot flashes, myalgia, and generalized discomfort. Will continue to monitor and medicate patient as ordered.
[2018-08-15] MEDS: ONDANSETRON 4 MG/2 ML VIAL IM PRN ×2 (13:39→23:01)
--- NOTE | 2018-08-15 13:39 | NUR ---
Zofran 4 mg IM given: Patient noted with x 1 episode of emesis and unable to tolerate PO intake at this time. Medicated patient with Zofran 4 mg IM as ordered. Will monitor for effectiveness.
--- NOTE | 2018-08-15 14:09 | NUR ---
Re-assessment: Zofran 4 mg IM Patient verbalizes that PRN Zofran was effective. Nausea and vomiting ceased.
[2018-08-15 16:00] VITALS: BP 94/64
--- NOTE | 2018-08-15 16:27 | NUR ---
COWS/CIWA Assessment: COWS 6, CIWA 8, patient continues to present with gross tremors, anxiety, agitation, facial flushing, chills, hot flashes, myalgia, and generalized discomfort. Will continue to monitor and medicate patient as ordered.
--- NOTE | 2018-08-15 19:02 | NUR ---
End of Shift Notes: Patient continues to be on 5-day Subutex taper as ordered with her 5-day Valium taper completed. VS monitored closely. No significant abnormalities noted. Withdrawal symptoms were closely monitored. Initial COWS 10/CIWA 12, patient presented with gross tremors, myalgia, anxiety, agitation, chills, hot flashes, nausea, vomiting, and generalized discomfort. Medicated patient with Zofran 4 mg IM as ordered at 1339 with help after 30 minutes. Last COWS 6/ CIWA 8. Patient stayed in her room for most of the shift. All needs met and attended. Will continue to monitor closely.
--- NOTE | 2018-08-15 19:40 | NUR ---
START OF SHIFT NOTE Rcvd report from outgoing nurse. Pt is a 43 y/o female A/O to person, place, time, and purpose. Pt was admitted for medically supervised withdrawal from ETOH and Opiates. Pt is on day 5 of a 5 day Valium and Subutex taper . Pt has been presenting w/ anxiety, restlessness, sweats, chills, hot flashes, N&V, body aches, depressed mood, and flat affect. Pt rcvd PRN John IM and was noted effective by outgoing nurse. Last CIWA 8 and COWS 6 @ 1600. Call light is within reach. Pt will continue to be monitored and needs met.
[2018-08-15 20:04] VITALS: BP 91/60
--- NOTE | 2018-08-15 20:07 | NUR ---
CIWA AND COWS ASSESSMENT CIWA 10 and COWS 10. . Pt has been presenting w/ anxiety, restlessness, sweats, chills, hot flashes, N&V, body aches, depressed mood, and flat affect. V/S: T:98.6, P:74, RR:14, SPO2:99, BP:91/60
[2018-08-15] MEDS: METHOCARBAMOL 750 MG TABLET PO PRN (21:00)
[2018-08-15] MEDS: DOXEPIN 50 MG CAPSULE PO SCH (21:00)
[2018-08-15] MEDS: TRAZODONE 50 MG TABLET PO PRN (21:01)
--- NOTE | 2018-08-15 21:01 | NUR ---
PRN TRAZODONE, ROBAXIN, CLONIDINE, AND VISTARIL ADMINISTRATION Trazodone 50mg for sleep, Robaxin 750mg for pain, Clonidine 0.1MG AND Vistaril 50mg for anixety and agitation Will reassess pt in 1 hr.
--- NOTE | 2018-08-15 22:01 | NUR ---
PRN TRAZODONE, ROBAXIN, CLONIDINE, AND VISTARIL REASSESSMENT Pt states beginning to feel drowsy and has "heavy eye lids". Pt also states relief from anxiety and body aches. Pt states the anxiety and body aches are still there but tolerable. Will continue to monitor pt.
--- NOTE | 2018-08-16 | NUR ---
CIWA AND COWS DEFERRED Pt is in bed w/ her eyes closed. pt's respirations are unlabored and even.
--- NOTE | 2018-08-16 04:00 | NUR ---
CIWA AND COWS DEFERRED Pt is in bed w/ her eyes closed. Pt's respirations are unlabored and even.
[2018-08-16] MEDS: AMOXICILLIN TRIHYDRATE 500 MG CAPSULE PO SCH ×3 (07:00→22:22)
--- NOTE | 2018-08-16 07:21 | NUR ---
END OF SHIFT NOTE Endorsed pt to oncoming nurse. Pt is a 43 y/o female A/O to person, place, time, and purpose. Pt was admitted for medically supervised withdrawal from ETOH and Opiates. Pt completed day 5 of a 5 day Valium and Subutex taper . Pt continued presenting w/ anxiety, N&V, restlessness, sweats, chills, hot flashes, N&V, body aches, depressed mood, and flat affect. Pt denies any S/I or H/I. PRN Zofran IM, Trazodone, Robaxin, Clonidine, and Vistaril were given and noted effective. Pts fluid intake was 1000ml and she slept for 7hrs. Last CIWA COWS 10 @ 1999. Call light is within reach.
--- NOTE | 2018-08-16 07:30 | NUR ---
Start of Shift Notes: t: Received endorsement from night nurse. Patient is a 43 year old female admitted for ETOH and opiate withdrawal who was placed on a 5-day Valium and 5-day Subutex taper as ordered. No adverse reactions noted. Per night report, patient was given PRN Trazodone, Robaxin, Clonidine, Vistaril and Zofran during the night. Last COWS 10/CIWA 10. Slept for a total of 7 hours. Educated patient on her current plan of care for the day and her medication regimen. Encouraged oral fluid intake and encouraged group participation to learn new skills to prevent relapse. All needs met and attended. Will continue to monitor.
[2018-08-16 08:00] VITALS: BP 92/61
[2018-08-16] MEDS: BUPRENORPHINE HCL 2 MG TAB.SUBL SL SCH (08:46)
[2018-08-16] MEDS: MULTIVITAMINS,THERAPEUTIC TABLET PO SCH (08:46)
[2018-08-16] MEDS: THIAMINE HCL 100 MG TABLET PO SCH (08:46)
[2018-08-16] MEDS: KETOROLAC TROMETHAMINE 30 MG INJ IM PRN (08:46)
[2018-08-16] MEDS: LIDOCAINE 5% PATCH TD SCH (08:46)
[2018-08-16] MEDS: FOLIC ACID 1 MG TABLET PO SCH (08:46)
[2018-08-16] MEDS: METHOCARBAMOL 750 MG TABLET PO PRN ×2 (08:46→22:40)
--- NOTE | 2018-08-16 08:46 | NUR ---
COWS/CIWA Assessment/PRN Robaxin and Toradol given: COWS 13, CIWA 10, patient continues to present with gross tremors, intermittent perspiration, restlessness, abdominal cramping, myalgia of 8/10, anxiety, agitation and generalized discomfort. Medicated patient with Robaxin and Toradol as ordered at 0846. Will monitor for effectiveness.
--- NOTE | 2018-08-16 09:16 | NUR ---
Re-assessment: Toradol Patient reports that her pain is now a 4 out of 10 at this time. PRN Toradol effective.
--- NOTE | 2018-08-16 09:46 | NUR ---
Re-assessment: Robaxin Patient rates her pain as a 2 out of 10 at this time. PRN Robaxin effective.
[2018-08-16] MEDS ORDERED: AMOX500C2 PO (10:58)
[2018-08-16 12:00] VITALS: BP 111/70
--- NOTE | 2018-08-16 12:37 | NUR ---
Therapist prompted client to attend group therapy sessions.
--- NOTE | 2018-08-16 13:00 | NUR ---
COWS/CIWA Assessment/PRN Robaxin and Toradol given: COWS 10, CIWA 9, patient continues to present with gross tremors, intermittent perspiration, restlessness, abdominal cramping, myalgia, anxiety, agitation and generalized discomfort.
[2018-08-16 16:00] VITALS: BP 135/65
--- NOTE | 2018-08-16 16:00 | NUR ---
COWS/CIWA Assessment: COWS 8, CIWA 8, patient continues to present with gross tremors, intermittent perspiration, restlessness, abdominal cramping, myalgia, anxiety, agitation and generalized discomfort.
--- NOTE | 2018-08-16 19:07 | NUR ---
End of Shift Notes: Patient completed her taper as ordered. Will be discharging tomorrow. VS monitored closely. No significant abnormalities noted. Withdrawal symptoms were closely monitored. Initial COWS 13/CIWA 10, patient presented with gross tremors, myalgia, anxiety, agitation, chills, hot flashes, nausea, vomiting, and generalized discomfort. Medicated patient with Robaxin and Toradol at 0846 with help. Last COWS 8/ CIWA 8. Patient stayed in her room for most of the shift. All needs met and attended. Will continue to monitor closely.
--- NOTE | 2018-08-16 19:30 | NUR ---
Start of shift note Received report from day shift nurse. Patient is a 43 year old female admitted for ETOH and Opiate withdrawal. Patient completed 5 day Subutex and 5 day Valium taper. Patient is medically cleared to be discharge tomorrow. Patient was given PRN Robaxin and Toradol IM. Last COWS 8 and CIWA 8. Patient alert and oriented x 4. Patient presents with disheveled appearance, eye avoidant, difficulty concentrating, anxious, restless and c/o back pain. Safety measures in place. Will continue to monitor.
[2018-08-16 20:00] VITALS: BP 115/74
--- NOTE | 2018-08-16 20:00 | NUR ---
CIWA assessment Patient reports anxiety, restlessness , intermittent perspiration, restless legs, and back pain. COWS 6 and CIWA 6. Addendum: 08/17/18 at 0011 by SULEMA EUGENE LVN COWS assessment
[2018-08-16] MEDS: HYDROXYZINE PAMOATE 25 MG CAPSULE PO PRN (22:23)
[2018-08-16] MEDS: DOXEPIN 50 MG CAPSULE PO SCH (22:23)
--- NOTE | 2018-08-16 22:23 | NUR ---
PRN Clonidine and Vistaril administration Patient reports increased anxiety and restlessness. Will monitor for effectiveness
[2018-08-16] MEDS: CLONIDINE HCL 0.1 MG TABLET PO PRN (22:24)
--- NOTE | 2018-08-16 22:40 | NUR ---
PRN Zofran and Robaxin administration Patient states she's nauseated and c/o muscle aches. Will monitor for effectiveness.
[2018-08-16] MEDS: ONDANSETRON ODT 4 MG TAB.RAPDIS SL PRN (22:41)
--- NOTE | 2018-08-16 23:10 | NUR ---
PRN Zofran SL re-assessment Patient states nausea ceased.
--- NOTE | 2018-08-16 23:23 | NUR ---
PRN Clonidine and Vistaril re-assessment Patient states Clonidine and Vistaril helpful and effective. Patient is less anxious.
--- NOTE | 2018-08-16 23:40 | NUR ---
PRN Justin re-assessment Patient states pain is lessened and tolerable.
[2018-08-17] VITALS: BP 105/68
--- NOTE | 2018-08-17 | NUR ---
COWS and CIWA assessment Patient states she's anxious, restless and difficulty falling asleep. Patient states she will try to sleep and will let us know if she'll if she needs medication. COWS 5 and CIWA 5.
[2018-08-17] MEDS: TRAZODONE 50 MG TABLET PO PRN (01:30)
--- NOTE | 2018-08-17 01:30 | NUR ---
PRN Trazadone administration Patient requests for sleep aid. Will monitor for effectiveness
--- NOTE | 2018-08-17 01:30 | NUR ---
COWS and CIWA assessment Patient states she's anxious, restless and unable to sleep. COWS 5 and CIWA 5.
--- NOTE | 2018-08-17 02:30 | NUR ---
PRN Trazadone re-assessment Patient in bed with eyes closed. Respiration even and unlabored. Will continue to monitor.
[2018-08-17 04:00] VITALS: BP 95/58
--- NOTE | 2018-08-17 04:00 | NUR ---
COWS and CIWA deferred Patient in bed with eyes closed. Respiration even and unlabored. Will continue to monitor.
[2018-08-17] MEDS: AMOXICILLIN TRIHYDRATE 500 MG CAPSULE PO SCH (06:19)
--- NOTE | 2018-08-17 07:36 | NUR ---
End of shift note Patient is discharging today. Patient completed 5 day Subutex and 5 day Valium taper. Patient presented with disheveled appearance, eye avoidant, difficulty concentrating, eye avoidant , anxious, restless ,and c/o back pain Patient had difficulty falling asleep during shift. Patient was given PRN Robaxin, Vistaril, Clonidine , Zofran and Trazadone. Last COWS 5 and CIWA 5. Safety measures in place. Will continue to monitor.
[2018-08-17 08:00] VITALS: BP 101/69
--- NOTE | 2018-08-17 08:10 | NUR ---
START OF SHIFT: Received pt with blunted affect and subdued mood. She reports anxiety and generalized body pain.COWS 4 CIWA 5. Detox tapers completed. She states she is motivated toward recovery and looks forward to going to [facility] this morning. She was given PRN Robaxin and PRN Tylenol to manage pain. Will continue to proceed with discharge process.
[2018-08-17] MEDS: MULTIVITAMINS,THERAPEUTIC TABLET PO SCH (08:30)
[2018-08-17] MEDS: THIAMINE HCL 100 MG TABLET PO SCH (08:30)
[2018-08-17] MEDS: FOLIC ACID 1 MG TABLET PO SCH (08:30)
[2018-08-17] MEDS: METHOCARBAMOL 750 MG TABLET PO PRN (08:30)
[2018-08-17] MEDS: LIDOCAINE 5% PATCH TD SCH (08:31)
[2018-08-17] MEDS: ACETAMINOPHEN 325 MG TABLET PO PRN (08:31)
--- NOTE | 2018-08-17 09:55 | NUR ---
DISCHARGE: Pt is A/O X 4. She was medically cleared for discharge per MD. She denies S/I and H/I. She reports feeling enthusiastic about recovery. Educated her on discharge instructions and medications. She expressed verbal understanding of education. Belongings returned. She was escorted by [facility]IE [facility]PER to [facility] where she was transported at 0950 to [facility].
== END 2018-08-17 09:50 | DRG 895 ==
LOC: SRC 19:10
PROVIDERS: ADMIT Family Medicine Addiction Medicine; ATTEND Family Medicine Addiction Medicine
PROC: HZ2ZZZZ Detoxification Services for Substance Abuse Treatment (ICD-10-PCS; principal; 2018-08-09)
PROC: HZ31ZZZ Individual Counseling for Substance Abuse Treatment, Behavioral (ICD-10-PCS; 2018-08-12)
PROC: HZ41ZZZ Group Counseling for Substance Abuse Treatment, Behavioral (ICD-10-PCS; 2018-08-13)
DX: F10.231 Alcohol dependence with withdrawal delirium (principal); N39.0 Urinary tract infection, site not specified; L03.90 Cellulitis, unspecified; F11.23 Opioid dependence with withdrawal; G47.00 Insomnia, unspecified; Y90.0 Blood alcohol level of less than 20 mg/100 ml; E03.9 Hypothyroidism, unspecified; E83.42 Hypomagnesemia; F41.1 Generalized anxiety disorder; E87.6 Hypokalemia; Z91.5 Personal history of self-harm; Z81.1 Family history of alcohol abuse and dependence; M79.7 Fibromyalgia; G89.29 Other chronic pain; D89.89 Other specified disorders involving the immune mechanism, not elsewhere classified; D63.8 Anemia in other chronic diseases classified elsewhere; F32.9 Major depressive disorder, single episode, unspecified; Z98.84 Bariatric surgery status; Z90.710 Acquired absence of both cervix and uterus; B95.1 Streptococcus, group B, as the cause of diseases classified elsewhere; Z87.01 Personal history of pneumonia (recurrent)
CPT/HCPCS: 36415; 70030-TC; 80307; 80346; 80349; 83690; 83735; 84443; 84703; 85025; 86592; 86705; 86803; 87086; 87340; 87806; A4663; G0480; J1885; J2405; J3411; J8499; Q0162